=== PATIENT | male | born 1985 | race African-American/Black ===

== ENCOUNTER 2017-08-22 06:14 | Emergency (ER) | payer SELFPAY ==
[~2017-08-22] VITALS: Ht 180.3 cm; Wt 68.2 kg
[2017-08-22 06:18] VITALS: Ht 180.3 cm; Wt 68.2 kg
[2017-08-22] MEDS ORDERED: SOD CHLORIDE 0.9% 1,000 ML IV STA (06:29)
[2017-08-22] MEDS ORDERED: LORAZEPAM 2 MG INJ IV ONE (06:30)
--- NOTE | 2017-08-22 06:48 | RADRPT ---
PROCEDURE: CHEST - 1 VIEW CLINICAL INDICATION: 31-year-old male with chest pain. TECHNIQUE: A single frontal AP portable view of the chest was performed. The images were reviewed on a PACS workstation. COMPARISON: None. FINDINGS: The cardiomediastinal silhouette has a normal appearance. The right mid lateral chest wall is not co mpletely on the radiograph. There is no evidence for an infiltrate. The pulmonary vascularity is wi thin normal limits. There is no evidence for pneumothorax or pneumomediastinum. The osseous structur es are intact. IMPRESSION: No evidence for active cardiopulmonary disease. .Ayad Bundy MD, MD Date Time Electronically viewed and signed by .Ayad Bundy MD, on 08/22/2017 06:48 .Rox/
[2017-08-22 07:12] LABS: BASOPHILS % 0.5 % (0.0-2.0); EOSINOPHILS # 0.2 10^3/ul (0.0-0.5); EOSINOPHILS % 2.4 % (0.0-7.0); HEMATOCRIT 48.5 % (42.0-52.0); HEMOGLOBIN 16.7 g/dl (14.0-18.0); LYMPHOCYTES # 3.8 10^3/ul (0.8-2.9); LYMPHOCYTES % 45.7 % (15.0-51.0); MEAN CORPUSCULAR HEMOGLOBIN 30.1 pg (29.0-33.0); MEAN CORPUSCULAR HGB CONC 34.4 g/dl (32.0-37.0); MEAN CORPUSCULAR VOLUME 87.4 fl (82.0-101.0); MEAN PLATELET VOLUME 8.8 fl (7.4-10.4); MONOCYTE # 0.8 10^3/ul (0.3-0.9); MONOCYTES % 9.1 % (0.0-11.0); NEUTROPHIL # 3.5 10^3/ul (1.6-7.5); NEUTROPHILS % 41.9 % (39.0-77.0); PLATELET COUNT 268 10^3/UL (140-415); RED BLOOD COUNT 5.55 10^6/ul (4.70-6.10); WHITE BLOOD COUNT 8.3 10^3/ul (4.8-10.8)
--- NOTE | 2017-08-22 07:18 | ERD ---
ER Documentation Chief Complaint Date/Time DATE: 08/22/17 TIME: 07:13 Chief Complaint H employee,c/o bilat hands numbness and nausea,denies FRANK, HPI This is a 31-year-old male history of smoking who presents to the emergency room with a multitude of complaints including sudden onset of hyperventilation, perioral paresthesias, bilateral hand numbness and cramping. He states that he woke up this morning and had a cigarette and drink a double shot of caffeine. He states that he only had 4 hours of sleep. He states that while on the ride to the emergency room he started to have an episode of hyperventilation and shortness of breath followed by perioral paresthesias and bilateral carpal spasms. He describes numbness to the entirety of his body including bilateral upper and lower extremities. He states that the symptoms are improving currently. He denied any chest pain or pressure, no pleuritic pain, no calf swelling. He did state some difficulty speaking when he was hyperventilating but none now. He denied any focal motor deficits. He denies any recent stressors or drug use. ROS All systems reviewed and are negative except as per history of present illness. Medications Home Meds No Active Prescriptions or Reported Meds Allergies Allergies: Coded Allergies: No Known Allergy (Unverified , 08/22/17) PMhx/Soc Medical and Surgical Hx: pt denies Medical Hx, pt denies Surgical Hx Hx Psychiatric Problems: No Hx Miscellaneous Medical Probl: No Hx Alcohol Use: No Hx Substance Use: No Hx Tobacco Use: Yes Smoking Status: Current some day smoker FmHx Family History: coronary disease, No diabetes Physical Exam Vitals Vital Signs Date Time Temp Pulse Resp B/P Pulse Ox O2 Delivery O2 Flow Rate FiO2 08/22/17 06:49 Nasal Cannula 2 08/22/17 06:18 98.8 108 16 156/112 100 Physical Exam General: Well developed, well nourished, no acute distress Head: Normocephalic, atraumatic. Eyes: Pupils equally reactive, EOM intact ENT: Moist mucous membranes Neck: Supple, no lymphadenopathy Respiratory: Lungs clear bilaterally, no distress Cardiovascular: Slight tachycardia, no murmurs, rubs, or gallops Abdominal: Soft, non-tender, non-distended, no peritoneal signs : Deferred MSK: No edema, no unilateral swelling, 5/5 strength Neurologic: Alert and oriented, moving all extremities, normal speech, no focal weakness, no cerebellar signs, normal rapid alternating movements, no pronator drift. Skin: No rash Psych: Anxious mood Result Diagram: 08/22/1750 08/22/17 0650 Results 24 hrs Laboratory Tests Test 08/22/17 06:50 White Blood Count 8.310^3/ul Red Blood Count 5.5510^6/ul Hemoglobin 16.7g/dl Hematocrit 48.5% Mean Corpuscular Volume 87.4fl Mean Corpuscular Hemoglobin 30.1pg Mean Corpuscular Hemoglobin Concent 34.4g/dl Red Cell Distribution Width 13.0% Platelet Count 56442^3/UL Mean Platelet Volume 8.8fl Neutrophils % 41.9% Lymphocytes % 45.7% Monocytes % 9.1% Eosinophils % 2.4% Basophils % 0.5% Nucleated Red Blood Cells % 0.0/100WBC Neutrophils # 3.510^3/ul Lymphocytes # 3.810^3/ul Monocytes # 0.810^3/ul Eosinophils # 0.210^3/ul Basophils # 0.010^3/ul Nucleated Red Blood Cells # 0.010^3/ul Sodium Level 142mmol/L Potassium Level 3.9mmol/L Chloride Level 102mmol/L Carbon Dioxide Level 26mmol/L Anion Gap 18 Blood Urea Nitrogen 14mg/dl Creatinine 0.88mg/dl Glucose Level 103mg/dl Calcium Level 9.9mg/dl Troponin I < 0.012ng/ml Current Medications Medications (Trade) Dose Ordered Sig/Alyce Route PRN Reason Start Time Stop Time Status Last Admin Dose Admin Sodium Chloride (NS) 1,000 ml @ 1,000 mls/hr Q1H STAT IV 08/22/17 06:29 08/22/17 07:28 DC 08/22/17 06:41 Lorazepam (Ativan) 1 mg ONCE ONCE IV 08/22/17 06:30 08/22/17 06:32 DC 08/22/17 06:41 Procedures/MDM EKG, MONITORS, & DIAGNOSTIC IMAGING: EKG: I reviewed and interpreted a 12-lead EKG. Rhythm: Normal sinus rhythm Ectopy: None Intervals: No abnormalities ST segments: No elevations or depressions T waves: No contiguous inversions Chest x-ray: I reviewed and interpreted a 1 view of the chest Mediastinum: No enlargement Cardiac silhouette: No cardiomegaly Airspace: Clear lung way bilaterally without evidence of pneumothorax Bones: No evidence of fracture LAB INTERPRETATION: No evidence of infection MEDICAL DECISION MAKING: The patient presents with what appears to be a sympathomimetic response and likely hyperventilation syndrome. The patient arrived with hypertension and tachycardia he was anxious. He described very clearly acute hyperventilation syndrome including perioral paresthesias, carpal spasms. The symptoms are dramatically improved at this time. I believe that a constellation of symptoms are represented and likely secondary to poor sleep, caffeine and tobacco intake this morning. This is likely triggering his sympathomimetic response. I do not believe that his symptoms represent pulmonary embolism or acute coronary syndrome though the patient does have significant family history of cardiac disease. He did not describe any exertional symptoms he did not describe any chest pain or pleuritic pain. The patient was somewhat concerned that he was having a stroke but his symptoms are bilateral and nonspecific and resolved. I do not believe that his syndrome is consistent with TIA or stroke. He has no clinical signs or symptoms of increased intracranial pressure therefore I do not believe CT brain is necessary. The patient has a clear better alternative diagnosis and does not warrant inpatient hospitalization at this point. I do believe the close observation with benzodiazepine use here in the emergency room would be appropriate. I will screen the patient given his family cardiac history with laboratory testing, troponin and EKG. However I do not believe this is cardiogenic in nature as described above. ER COURSE: Patient was given IV fluids and Ativan with improved vital signs and symptoms. His sympathomimetic responses seem to be improving. The patient is now with normal heart rate and normal blood pressure his symptoms have been resolved. Again I believe this is consistent with sympathomimetic response and anxiety response and hyperventilation syndrome. The patient has no evidence of cardiac ischemia or stroke. The patient is safe for discharge. Smoking Cessation: I had a greater than 3 minute conversation with the patient regarding smoking cessation. We discussed multiple alternatives. I kept the patient and/or family informed of laboratory and diagnostic imaging results throughout the emergency room course. DISPOSITION PLAN: We discussed follow up with the patient's primary care doctor within 24 to 48 hours as needed. We also discussed return to the emergency room for worsening symptoms or worsening condition. Outpatient referral: [None required] Discharge Medications: None required Departure Diagnosis: Primary Impression: Hyperventilation syndrome Additional Impression: Adv eff sympathomimetics Condition: Stable CAMILO MOHAMUD MD Aug 22, 2017 07:18
[2017-08-22 07:27] LABS: ANION GAP 18 (8-16); BLOOD UREA NITROGEN 14 mg/dl (7-20); CALCIUM 9.9 mg/dl (8.4-10.2); CARBON DIOXIDE 26 mmol/L (21-31); CHLORIDE 102 mmol/L (97-110); CREATININE 0.88 mg/dl (0.61-1.24); GLUCOSE 103 mg/dl (70-220); POTASSIUM 3.9 mmol/L (3.5-5.1); SODIUM 142 mmol/L (135-144)
[2017-08-22 07:39] LABS: TROPONIN-I < 0.012 ng/ml (0.00-0.12)
[2017-08-22 11:41] VITALS: BP 131/95; PULSE 83; RESP 18
== END 2017-08-22 09:22 | disposition home or self-care (01) ==
LOC: E/R 06:14
DX: F45.8 Other somatoform disorders (principal); F17.210 Nicotine dependence, cigarettes, uncomplicated; T43.615A Adverse effect of caffeine, initial encounter
CPT/HCPCS: 36415; 71010; 80048; 84484; 85025; 96374; 99285; J2060; J7030

== ENCOUNTER 2017-08-27 19:10 | Emergency (ER) | END 2017-08-27 23:26 | disposition home or self-care (01) ==

== ENCOUNTER 2018-02-24 22:19 | Emergency (ER) | END 2018-02-25 01:00 | disposition home or self-care (01) ==